=== PATIENT | male | born 1940 | race Caucasian/White ===

== ENCOUNTER → 2016-04-15 | Outpatient (CLI) | payer OTHER | END | disposition home or self-care (01) | LOC: PCVCCLINIC 14:44 | PROVIDERS: ATTEND Internal Medicine Cardiovascular Disease | DX: E78.5 Hyperlipidemia, unspecified (principal) | CPT/HCPCS: 36415 ==

== ENCOUNTER → 2017-01-08 | Outpatient (CLI) | payer OTHER ==
--- NOTE | 2017-01-08 12:14 | PCVCIMAG ---
APPROVED REPORT Study performed: 01/08/2017 11:22:34 EXAM: Comprehensive 2D, Doppler, and color-flow Echocardiogram Patient Location: Echo lab Status: routine BSA: 2.24 HR: 70 bpmBP: 132/68 mmHg Rhythm: NSR Other Information Study Quality: Adequate Indications Pre-Op Hypertrophic Cardiomyopathy, Mechanical Mitral valve replacement 2D Dimensions LVEF(%): 49.07 (>50%) IVSd: 13.48 (7-11mm) LVDd: 46.87 mm PWd: 9.90 (7-11mm) LVDs: 35.26 (25-40mm) Left Atrium: 48.60 (27-40mm) Aortic Root: 36.46 mm LV Single Plane 4CH: 57.84 % LV Single Plane 2CH: 56.83 %Holman's LVEF: 57.33 % Biplane EF: 58.2 % Volumes Left Atrial Volume (Systole) Single Plane 4CH: 111.35 mLSingle Plane 2CH: 104.75 mL LA ESV Index: 52.00 mL/m2 Aortic Valve AoV Peak Loco.: 2.25 m/s AO Peak Gr.: 20.38 mmHgLVOT Max P.60 mmHg LVOT Max V: 0.95 m/s AI Vmax: 3.98 m/s AI [place]: 2.77 m/s2 AI PHT: 419.50 ms Mitral Valve MV Peak Gr.: 7.51 mmHg MV Mean Gr.: 3.19 mmHgE/A Ratio: 1.4 MV Decel. Time: 225.74 ms MV E Max Loco.: 1.13 m/s MV A Loco.: 0.80 m/s MV Max Loco.: 1.37 m/s MV VTI: 377.68 mm MV PHT: 65.46 ms MVA (PHT): 2.16 cm2 IVRT: 65.74 ms Pulmonary Valve PV Peak Loco.: 0.87 m/sPV Peak Gr.: 3.06 mmHg Tricuspid Valve TR Peak Loco.: 2.84 m/s TR Peak Gr.: 32.37 mmHg TV Vmax: 0.50 m/s Left Ventricle The left ventricle is normal size. There is normal LV segmental wall motion. Mild concentric left ventricular hypertrophy. Left ventricular systolic function is normal. The left ventricular ejection fraction is within the normal range. LVEF is 55-60%. Grade II - pseudonormal filling dynamics. Right Ventricle The right ventricle is normal size. The right ventricular systolic function is normal. Atria Left atrium is severely dilated. Right atrium is moderately dilated. Aortic Valve The aortic valve is normal in structure. Mild to moderate aortic regurgitation. There is no aortic valvular stenosis. Mitral Valve Mechanical prosthetic valve in the mitral position. Trace mitral regurgitation. No evidence of mitral valve stenosis. Calculated mitral valve area is 2.2 cm2 with maximum pressure gradient of 7.5 mmHg and mean pressure gradient of 3.2 mmHg. Tricuspid Valve The tricuspid valve is normal in structure. Mild tricuspid regurgitation with PAP of 39 mmHg. Pulmonic Valve The pulmonary valve is normal in structure. Trace pulmonic regurgitation. Great Vessels The aortic root is normal in size. IVC is normal in size and collapses with >50% inspiration Pericardium There is no pericardial effusion. <Conclusion> The left ventricle is normal size. Mild concentric left ventricular hypertrophy. Left ventricular systolic function is normal. The right ventricle is normal size. Left atrium is severely dilated. Mild to moderate aortic regurgitation. Mechanical prosthetic valve in the mitral position. Mild tricuspid regurgitation with PAP of 39 mmHg.
== END | disposition home or self-care (01) ==
LOC: PCVCIMAG 11:08
PROVIDERS: ATTEND Internal Medicine Cardiovascular Disease
DX: Z01.818 Encounter for other preprocedural examination (principal); I08.3 Combined rheumatic disorders of mitral, aortic and tricuspid valves; I25.10 Atherosclerotic heart disease of native coronary artery without angina pectoris; I42.2 Other hypertrophic cardiomyopathy; I10 Essential (primary) hypertension; E80.0 Hereditary erythropoietic porphyria; I48.91 Unspecified atrial fibrillation; R94.31 Abnormal electrocardiogram [ECG] [EKG]; I44.7 Left bundle-branch block, unspecified; Z79.82 Long term (current) use of aspirin; Z79.899 Other long term (current) drug therapy; Z79.84 Long term (current) use of oral hypoglycemic drugs; Z79.01 Long term (current) use of anticoagulants
CPT/HCPCS: 85610; 93005; 93306; G0463

== ENCOUNTER → 2017-01-13 | Outpatient (CLI) | payer OTHER | END | disposition home or self-care (01) | LOC: PCVCCLINIC 10:00 | PROVIDERS: ATTEND Internal Medicine Cardiovascular Disease | DX: Z51.81 Encounter for therapeutic drug level monitoring (principal); I48.91 Unspecified atrial fibrillation; E78.5 Hyperlipidemia, unspecified; Z95.2 Presence of prosthetic heart valve; Z79.01 Long term (current) use of anticoagulants | CPT/HCPCS: 85610 ==

== ENCOUNTER → 2017-01-20 | Outpatient (CLI) | payer OTHER | END | disposition home or self-care (01) | LOC: PCVCCLINIC 10:05 | PROVIDERS: ATTEND Internal Medicine Cardiovascular Disease | DX: Z51.81 Encounter for therapeutic drug level monitoring (principal); I48.91 Unspecified atrial fibrillation; I25.10 Atherosclerotic heart disease of native coronary artery without angina pectoris; Z95.2 Presence of prosthetic heart valve; Z79.01 Long term (current) use of anticoagulants | CPT/HCPCS: 85610 ==

== ENCOUNTER → 2017-03-18 | Outpatient (CLI) | payer OTHER | END | disposition home or self-care (01) | LOC: PCVCCLINIC 15:57 | DX: Z51.81 Encounter for therapeutic drug level monitoring (principal); I48.91 Unspecified atrial fibrillation; I25.10 Atherosclerotic heart disease of native coronary artery without angina pectoris; E78.5 Hyperlipidemia, unspecified; Z95.2 Presence of prosthetic heart valve; Z79.01 Long term (current) use of anticoagulants | CPT/HCPCS: 36415; 85610 ==

== ENCOUNTER → 2017-03-25 | Outpatient (CLI) | payer OTHER | END | disposition home or self-care (01) | LOC: PCVCCLINIC 10:54 | DX: Z51.81 Encounter for therapeutic drug level monitoring (principal); I48.91 Unspecified atrial fibrillation; I25.10 Atherosclerotic heart disease of native coronary artery without angina pectoris; E78.5 Hyperlipidemia, unspecified; Z95.2 Presence of prosthetic heart valve; Z79.01 Long term (current) use of anticoagulants | CPT/HCPCS: 36415; G0463 ==

== ENCOUNTER → 2017-06-17 | Outpatient (CLI) | payer OTHER | END | disposition home or self-care (01) | LOC: PCVCCLINIC 14:55 | DX: I10 Essential (primary) hypertension (principal); E78.00 Pure hypercholesterolemia, unspecified; I42.9 Cardiomyopathy, unspecified; R94.31 Abnormal electrocardiogram [ECG] [EKG]; Z95.2 Presence of prosthetic heart valve; Z79.82 Long term (current) use of aspirin; Z79.899 Other long term (current) drug therapy; Z79.01 Long term (current) use of anticoagulants | CPT/HCPCS: 85610; 93005; G0463 ==

== ENCOUNTER → 2018-01-26 | Outpatient (CLI) | payer OTHER | END | disposition home or self-care (01) | LOC: PCVCCLINIC 11:07 | PROVIDERS: ATTEND Internal Medicine Cardiovascular Disease | DX: I10 Essential (primary) hypertension (principal); E11.9 Type 2 diabetes mellitus without complications; J45.909 Unspecified asthma, uncomplicated; I25.10 Atherosclerotic heart disease of native coronary artery without angina pectoris; E78.00 Pure hypercholesterolemia, unspecified; Z88.8 Allergy status to other drugs, medicaments and biological substances | CPT/HCPCS: 36415 ==

== ENCOUNTER → 2018-01-30 | Outpatient (CLI) | payer OTHER ==
[~2018-01-30] MED LIST: REGADENOSON 0.4 MG/5 ML DISP.SYRIN. IV ONE
--- NOTE | 2018-01-30 12:35 | PCVCIMAG ---
APPROVED REPORT Imaging Protocol: Rest Tc-99m/Stress Tc-99m 1 day Study performed: 01/30/2018 10:01:54 Indication: Chest pain, Dyspnea, Hypertrophic Cardiomyopathy Patient Location: Out-Patient Stress Nurse: Abiola Hassan RN, Ana Laura Cifuentes RN AR Tech:Zamzam HARSHAD SloanMT Ht: 5 ft 9 in Wt: 229 lbs BSA: 2.19 m2 HR: 65 bpm BP: 171/73 mmHg BMI: 33.81 Rhythm: Sinus Rhythm, First degree AV Block, LBBB Medical History Medical History: HTN, Hyperlipidemia, Diabetes Medications: Aspirin, Metoprolol, Atorvastatin, Symbicort, Losartan, Metformin, Warfarin, Dyazide Allergies: Keflex, Morphine Cardiac Risk Factors: Age Pretest Chest Pain Characteristics: No chest pain Exercise History: Sedentary Meds Held (24 hrs): Pt. chose to hold all meds Resting Data Rest SPECT myocardial perfusion imaging was performed in supine position 45 minutes following the intravenous injection of 10.9 mCi of Tc-99m Sestamibi. Time of rest injection: 0930 Date: 01/30/2018 Administration Route: IV Administration Site: Right Hand Pharmacologic Stress Pharmacologic stress test was performed by injecting Regadenoson 0.4 mg IV push over 10-15 seconds immediately followed by the intravenous injection of 33.5 mCi of Tc-99m Sestamibi. Time of stress injection: 1030 Date: 01/30/2018 Administration Route: IV Administration Site: Right Hand Gated Stress SPECT was performed 45 minutes after stress injection. The images were gated to evaluate regional wall motion and calculate left ventricular ejection fraction. Stress Test Details Stress Test: Pharmacologic stress testing performed using 0.4 mg of regadenoson per 5 mL given IV over 10 seconds. Reason for pharmacologic stress test: LBBB. HRMax Heart Rate (APMHR): 145 bpm Resting HR: 65 bpmTarget HR (85% APMHR): 123 bpm Max HR Achieved: 88 bpm % of APMHR: 60 Recovery HR: 85 bpm BP Resting BP: 171/73 mmHg Max BP: 141/57 mmHg Recovery BP: 135/64 mmHg ECG Resting ECG: Sinus Rhythm, First degree AV Block, LBBB Stress ECG: Sinus Rhythm, First degree AV Block, LBBB ST Change: Nondiagnostic due to LBBB Arrhythmia: PVC's Recovery ECG: Sinus Rhythm, First degree AV Block, LBBB Clinical Reason for Termination: Completed protocol Stress Symptoms: Chest pain, headache Exercise duration: 0 min 55 sec Scale: Sedentary Symptoms resolved with caffeine. Study Quality Study: Good Study Data Post stress, the left ventricular ejection was 65%.. SSS: 1 SRS: 2 SDS: 1 Perfusion Normal left ventricular perfusion. Normal perfusion on both the stress and rest images. Wall Motion Normal left ventricular wall motion. Nuclear Conclusion ECG Findings: non-diagnostic Clinical Findings: non-diagnostic Nuclear Findings: negative for ischemia Exercise Capacity: not assessed Left Ventricular Function: normal Risk Study: low This study is of low probability for inducible ischemia or prior infarct. Normal global and segmental LV systolic function.
== END | disposition home or self-care (01) ==
LOC: PCVCIMAG 10:33
PROVIDERS: ATTEND Internal Medicine Cardiovascular Disease
DX: I48.91 Unspecified atrial fibrillation (principal); R06.00 Dyspnea, unspecified; R07.9 Chest pain, unspecified; E11.9 Type 2 diabetes mellitus without complications; I10 Essential (primary) hypertension; I25.10 Atherosclerotic heart disease of native coronary artery without angina pectoris; I42.2 Other hypertrophic cardiomyopathy; E78.5 Hyperlipidemia, unspecified
CPT/HCPCS: 78452; 93017; A9500; J2785

== ENCOUNTER → 2018-07-29 | Outpatient (CLI) | payer OTHER | END | disposition home or self-care (01) | LOC: PCVCCLINIC 14:00 | PROVIDERS: ATTEND Internal Medicine Cardiovascular Disease | DX: I42.2 Other hypertrophic cardiomyopathy (principal); I10 Essential (primary) hypertension; R60.9 Edema, unspecified; R06.09 Other forms of dyspnea; Z88.8 Allergy status to other drugs, medicaments and biological substances; Z79.82 Long term (current) use of aspirin; Z79.899 Other long term (current) drug therapy | CPT/HCPCS: 36415; 85610; 93005; G0463 ==

== ENCOUNTER → 2019-01-26 | Outpatient (CLI) | payer OTHER ==
--- NOTE | 2019-01-26 15:20 | PCVCIMAG ---
APPROVED REPORT Study performed: 01/26/2019 13:41:49 EXAM: Comprehensive 2D, Doppler, and color-flow Echocardiogram Patient Location: Echo lab Room #: 2Status: routine BSA: 2.17 HR: 91 bpmBP: 150/70 mmHg Rhythm: Atrial Fibrillation Other Information Study Quality: Fair Risk Factors: Cardiac Risk Factors: HTN, Hyperlipidemia, obesity Indications Aortic Valve Disease Mitral Valve Disease Atrial Fibrillation Dyspnea Cardiomyopathy S/P Myomectomy with mitral valve repair, MV replacement=mechanical 2D Dimensions IVSd: 19.77 (7-11mm)LVOT Diam: 21.04 (18-24mm) LVDd: 52.65 mm PWd: 13.13 (7-11mm)Ascending Ao: 30.57 (22-36mm) LVDs: 31.25 (25-40mm) Left Atrium: 45.24 (27-40mm) Aortic Root: 29.71 mm LV Single Plane 4CH: 50.39 % LV Single Plane 2CH: 59.94 % Biplane EF: 56.6 % Volumes Left Atrial Volume (Systole) Single Plane 4CH: 122.92 mLSingle Plane 2CH: 114.25 mL Biplane LA Volume: 121.00 mLLA ESV Index: 56.00 mL/m2 Aortic Valve AoV Peak Loco.: 1.98 m/s AO Peak Gr.: 16.02 mmHgLVOT Max P.63 mmHg AO Mean Gr.: 10.04 mmHgLVOT Mean P.14 mmHg AO V2 Mean: 1.51 m/sLVOT Max V: 0.97 m/s AO V2 VTI: 34.08 cmLVOT Mean V: 0.69 m/s TEVIN (VTI): 2.16 [id number] V1 VTI: 21.20 cm TEVIN Vmax: 1.71 cm2 AI Vmax: 3.01 m/sSV (LVOT): 73.65 mL AI [place]: 3.43 m/s2 AI PHT: 254.05 ms Mitral Valve MV Peak Gr.: 22.12 mmHg MV Mean Gr.: 6.84 mmHg MV E Max Loco.: 1.81 m/s MV Max Loco.: 2.35 m/s MV Mean Loco.: 1.17 m/s MV VTI: 396.81 mm MVA VTI: 185.61 mm2 MV PHT: 39.72 ms MVA (PHT): 5.54 cm2 IVRT: 43.83 ms TDI E/Lateral E': 18.10E/Medial E': 18.10 Medial E' Loco.: 0.10 m/s Lateral E' Loco.: 0.10 m/s Pulmonary Valve PV Peak Loco.: 0.91 m/sPV Peak Gr.: 3.33 mmHg Tricuspid Valve TV Vmax: 0.72 m/s Left Ventricle The left ventricle is normal size. Paradoxical septal motion consistent with conduction abnormality. Moderate concentric left ventricular hypertrophy. Left ventricular systolic function is normal. The left ventricular ejection fraction is within the normal range. LVEF is 55-60%. Moderate diastolic dysfunction is present (pseudonormal filling). Right Ventricle The right ventricle is normal size. The right ventricular systolic function is normal. Atria Left atrium is dilated. Right atrium is dilated. Aortic Valve The Aortic valve is sclerotic. Mild aortic regurgitation. Mitral Valve A mechanical valve is seen in the mitral position. Prosthetic mitral valve appears normal. Unable to assess regurgitation due to shadowing No evidence of mitral valve stenosis. Tricuspid Valve The tricuspid valve is normal in structure. Trace tricuspid regurgitation. Pulmonic Valve The pulmonary valve is normal in structure. There is no pulmonic valvular regurgitation. Great Vessels The aortic root is normal in size. Ascending aorta is not well visualized. Aortic arch is normal in caliber. IVC is normal in size and collapses >50% with inspiration. Pericardium There is no pericardial effusion. There is no pleural effusion. <Conclusion> The left ventricle is normal size. Moderate concentric left ventricular hypertrophy. Left ventricular systolic function is normal. Moderate diastolic dysfunction is present (pseudonormal filling). The right ventricle is normal size. Left atrium is dilated. The Aortic valve is sclerotic. Mild aortic regurgitation. Prosthetic mitral valve appears normal. Trace tricuspid regurgitation.
== END | disposition home or self-care (01) ==
LOC: PCVCIMAG 14:35
PROVIDERS: ATTEND Internal Medicine Cardiovascular Disease
DX: I11.9 Hypertensive heart disease without heart failure (principal); I35.8 Other nonrheumatic aortic valve disorders; I42.2 Other hypertrophic cardiomyopathy
CPT/HCPCS: 93306